=== PATIENT | female | born 1970 | race Caucasian/White ===

== ENCOUNTER 2019-09-04 07:45 | Emergency (ER) | payer BC ==
[2019-09-04 08:08] VITALS: BP 149/101
--- NOTE | 2019-09-04 08:12 | UC ---
Lower Extremity/Ankle HPI - HPI Summary HPI Summary: The patient is a 49-year-old female that presents here with a 2 day history of rapidly progressing left lateral ankle pain redness and swelling. She has hardware in that ankle from an open reduction internal fixation of her fracture that was performed over 20 years ago. She has not been feverish. She denies any history of skin infections. She states that a number weeks ago she had bumped that ankle and had an open area of the later formed a scab over her lateral malleolus. - History of Current Complaint Chief Complaint: UCLowerExtremity Stated Complaint: ANKLE INJURY Time Seen by Provider: 09/04/19 08:03 Hx Obtained From: Patient Onset/Duration: Gradual Onset, Lasting Days Severity Initially: Mild Severity Currently: Moderate Pain Intensity: 5 Pain Scale Used: 0-10 Numeric Aggravating Factor(s): Standing, Ambulation Alleviating Factor(s): Rest Able to Bear Weight: Yes Feet (Multiple View): 1 - surgical scar 2 - eschar 3 - red/warm/tender - Allergies/Home Medications Allergies/Adverse Reactions: Allergies Allergy/AdvReac Type Severity Reaction Status Date / Time No Known Allergies Allergy Verified 09/04/19 08:04 Home Medications: Home Medications NK [No Home Medications Reported] 09/04/19 [History Confirmed 09/04/19] PMH/Surg Hx/FS Hx/Imm Hx Previously Healthy: Yes - Surgical History Surgical History: Yes Surgery Procedure, Year, and Place: Partial thyroidectomy. L ankle surgery. C section x2 - Family History Known Family History: Positive: Non-Contributory - Social History Alcohol Use: None Substance Use Type: None Smoking Status (MU): Never Smoked Tobacco Review of Systems All Other Systems Reviewed And Are Negative: Yes Constitutional: Positive: Negative Skin: Positive: Negative Eyes: Positive: Negative ENT: Positive: Negative Respiratory: Positive: Negative Cardiovascular: Positive: Negative Gastrointestinal: Positive: Negative Genitourinary: Positive: Negative Motor: Positive: Negative Neurovascular: Positive: Negative Musculoskeletal: Positive: Arthralgia - Left ankle Neurological: Positive: Negative Psychological: Positive: Negative Physical Exam Triage Information Reviewed: Yes Appearance: Well-Appearing, No Pain Distress, Well-Nourished Vital Signs: Initial Vital Signs Temp 99.6 F 09/04/19 08:05 Pulse 109 09/04/19 08:05 Resp 18 09/04/19 08:05 BP 149/101 09/04/19 08:05 Pulse Ox 100 09/04/19 08:05 Vital Signs Reviewed: Yes Eyes: Positive: Conjunctiva Clear ENT: Positive: Hearing grossly normal, Uvula midline. Negative: Nasal congestion, Nasal drainage, Tonsillar swelling, Tonsillar exudate, Hoarse voice Neck: Positive: Supple Respiratory: Positive: Lungs clear, Normal breath sounds, No respiratory distress, No accessory muscle use Cardiovascular: Positive: RRR, No Murmur Musculoskeletal: Positive: No Edema, Other: - see image Neurological: Positive: Alert Psychological Exam: Normal Skin Exam: Normal Lower Extremity Course/Dx - Course Course Of Treatment: I explained to patient my concern re infection/osteo ? joint infection She will be driven to ER by her son - Differential Dx/Diagnosis Provider Diagnosis: Left ankle pain Discharge ED - Sign-Out/Discharge Documenting (check all that apply): Patient Departure All imaging exams completed and their final reports reviewed: No Studies - Discharge Plan Condition: Fair Disposition: HOME-RECOMMEND TO ED Referrals: No Primary Care Phys,NOPCP [Primary Care Provider] - Additional Instructions: please go to the ER directly from here You may have infected hardware /joint infection/bone infection This needs to be addressed today - Billing Disposition and Condition Condition: FAIR Disposition: Home-Recommend to ED
== END 2019-09-04 08:16 | disposition home health service (06) ==
LOC: UCEAST 07:45
DX: M25.572 Pain in left ankle and joints of left foot (principal); Z96.7 Presence of other bone and tendon implants
CPT/HCPCS: 99202; G0463

== ENCOUNTER 2019-09-04 08:32 | Emergency (ER) | payer BC ==
--- NOTE | 2019-09-04 09:12 | ED ---
Lower Extremity - HPI Summary HPI Summary: This patient is a 49 year old F presenting to [facility] accompanied by sons with a chief complaint of pain in left ankle since a couple days ago. A couple days ago her ankle suddenly began to hurt and became red and swollen. Per triage, the patient rates the pain 9/10 in severity. Patients left ankle has hardware in it from injury years ago. Around 5 months ago, pt banged her leg, and her ankle opened up. However her ankle had closed back up. Pt was sent to ED from Urgent Care. - History of Current Complaint Chief Complaint: EDExtremityLower Stated Complaint: SORE L ANKLE PER PT Time Seen by Provider: 09/04/19 08:50 Hx Obtained From: Patient Mechanism Of Injury: Unknown Onset of Pain: Days Onset/Duration: Still Present Severity Initially: Severe Severity Currently: Severe Pain Intensity: 9 Pain Scale Used: 0-10 Numeric Timing: Constant Location: Is Discrete @ - L ankle Associated Signs And Symptoms: Positive: Swelling, Redness Aggravating Factor(s): Nothing Alleviating Factor(s): Nothing - Allergies/Home Medications Allergies/Adverse Reactions: Allergies Allergy/AdvReac Type Severity Reaction Status Date / Time No Known Allergies Allergy Verified 09/04/19 08:43 PMH/Surg Hx/FS Hx/Imm Hx Sensory History: Denies: Hx Legally Blind, Hx Deafness Opthamlomology History: Denies: Hx Legally Blind EENT History: Denies: Hx Deafness - Surgical History Surgery Procedure, Year, and Place: Partial thyroidectomy. L ankle surgery. C section x2 Infectious Disease History: No Infectious Disease History: Denies: Traveled Outside the [place] in Last 30 Days - Family History Known Family History: Positive: Hypertension, Diabetes - Social History Lives: With Family Alcohol Use: None Substance Use Type: Reports: None Smoking Status (MU): Never Smoked Tobacco Review of Systems Negative: Fever Positive: Edema, Other - L ankle pain, redness All Other Systems Reviewed And Are Negative: Yes Physical Exam - Summary Physical Exam Summary: Appearance: The patient is well-nourished in no acute distress and in no acute pain. Skin: The skin is warm and dry, and skin color reflects adequate perfusion. HEENT: The head is normocephalic and atraumatic. The pupils are equal and reactive. The conjunctivae are clear and without drainage. Nares are patent and without drainage. Mouth reveals moist mucous membranes, and the throat is without erythema and exudate. The external ears are intact. The ear canals are patent and without drainage. The tympanic membranes are intact. Neck: The neck is supple with full range of motion and non-tender. There are no carotid bruits. There is no neck vein distension. Respiratory: Chest is non-tender. Lungs are clear to auscultation and breath sounds are symmetrical and equal. Cardiovascular: Heart is regular rate and rhythm. There is no murmur or rub auscultated. Pulses are symmetrical and equal. Abdomen: The abdomen is soft and non-tender. There are normal bowel sounds heard in all four quadrants and there is no organomegaly palpated. Musculoskeletal: There is no back tenderness noted. There is good capillary refill. There is no calf tenderness elicited. Lateral L ankle swollen and erythematous. Neurological: Patient is alert and oriented to person, place and time. The patient has symmetrical motor strength in all four extremities. Cranial nerves are grossly intact. Deep tendon reflexes are symmetrical and equal in all four extremities. Psychiatric: The patient has an appropriate affect and does not exhibit any anxiety or depression. Triage Information Reviewed: Yes Vital Signs On Initial Exam: Initial Vitals Temp Pulse Resp BP Pulse Ox 97.4 F 101 17 152/109 100 09/04/19 08:40 09/04/19 08:40 09/04/19 08:40 09/04/19 08:40 09/04/19 08:40 Vital Signs Reviewed: Yes Procedures - Sedation Patient Received Moderate/Deep Sedation with Procedure: No Diagnostics - Vital Signs Vital Signs Temp Pulse Resp BP Pulse Ox 09/04/19 08:40 97.4 F 101 17 152/109 100 - Laboratory Result Diagrams: 09/04/19 09:22 09/04/19 09:22 Lab Statement: Any lab studies that have been ordered have been reviewed, and results considered in the medical decision making process. - Radiology Ankle X-Ray Radiology Interpretation Completed By: Radiologist Summary of Radiographic Findings: Ankle X-Ray reveals, per radiologist IMPRESSION: 1. INTACT LEFT DISTAL ANKLE ORIF DEVICES THAT APPEAR TO BE ANATOMICALLY ALIGNED. 2. RADIOGRAPHIC FINDINGS ARE CONSISTENT WITH SOFT TISSUE SWELLING SURROUNDING THE ANKLE. ED physician has reviewed this radiology report. Re-Evaluation - Re-Evaluation First Eval Re-Evaluation Time: 10:20 Comment: Discussed results and plan of care with pt. Lower Extremity Course/Dx - Course Course Of Treatment: Ms. Montero swelling, erythema and tenderness consistent with cellulitis. There is a break in the skin this may be the origin. Plain film showed no sign of osteo myelitis and she had no leukocytosis. This does not completely clear her of an ostial mellitus and I recommend she follow up with her PCP in [place] she may need further testing. Meanwhile I will start her on Keflex. - Diagnoses Provider Diagnoses: Cellulitis Discharge ED - Sign-Out/Discharge Documenting (check all that apply): Patient Departure - Discharge - Discharge Plan Condition: Stable Disposition: HOME Prescriptions: Cephalexin CAP* [Keflex CAP*] 500 mg PO QID #40 cap Patient Education Materials: Cellulitis (ED) Referrals: Sanjeev Argueta MD [Medical Doctor] - 3 Days Additional Instructions: Follow up with orthopedic doctor within 2-3 days. Return to ED for any new or worsening symptoms. - Billing Disposition and Condition Condition: STABLE Disposition: Home - Attestation Statements Document Initiated by Scribe: Yes Documenting Scribe: Dee Evans Provider For Whom Scribe is Documenting (Include Credential): Nitesh Gillespie MD Scribe Attestation: IDee, pietroibed for Nitesh Gillespie MD on 09/04/19 at 1601. Scribe Documentation Reviewed: Yes Provider Attestation: The documentation as recorded by the Dee loredo accurately reflects the service I personally performed and the decisions made by me, Nitesh Gillespie MD Status of Scribe Document: Viewed
[2019-09-04 09:31] LABS: ABS Eosinophils 0.1 10^3/ul (0-0.6); ABS Lymphocytes 1.2 10^3/ul (1.0-4.8); ABS Monocytes 0.8 10^3/ul (0-0.8); ABS Neutrophils 7.5 10^3/ul (1.5-7.7); Eosinophil % 0.6 %; Hematocrit 40 % (35-47); Hemoglobin 13.2 g/dL (12.0-16.0); Lymphocyte % 12.6 %; Mean Corpuscular HGB Conc 33 g/dL (31-36); Mean Corpuscular Hemoglobin 30 pg (27-31); Mean Corpuscular Volume 89 fL (80-97); Mean Platelet Volume 8.8 fL (7.4-10.4); Platelet Count 240 10^3/uL (150-450); Red Blood Count 4.46 10^6 /uL (3.70-4.87); Red Cell Distribution Width 14 % (10-15); White Blood Count 9.6 10^3/uL (3.5-10.8)
[2019-09-04 10:03] LABS: Albumin 4.4 g/dL (3.2-5.2); Albumin/Globulin Ratio 1.3 (1-3); BUN/Creatinine Ratio 14.1 (8-20); Calcium 9.5 mg/dL (8.6-10.3); EGFR African American 119.8 (>60); Globulin 3.5 g/dL (2-4); Potassium 3.8 mmol/L (3.5-5.0); Total Bilirubin 0.7 mg/dL (0.2-1.0); Total Protein 7.9 g/dL (6.4-8.9)
[2019-09-04] MEDS ORDERED: Cephalexin CAP* 500 MG PO ONE (10:35)
[2019-09-04 10:57] VITALS: BP 148/90
== END 2019-09-04 10:57 | disposition home or self-care (01) ==
LOC: ED 08:32
DX: L03.116 Cellulitis of left lower limb (principal)
CPT/HCPCS: 36415; 80053; 83605; 85025; 87040; 99282; A9270-GY

== ENCOUNTER → 2019-09-26 13:36 | Day surgery (SDC) | payer BC ==
[~2019-09-26 13:36] MED LIST: Buffered Lidocaine 1% SYRIN* 1 ML/SYRINGE INTRADERM ONE; Bupivacaine 0.5%* 50 ML MDV VIAL ONE; Dexamethasone TAB* 4 MG ONE; Dexamethasone TAB* 4 MG PO ONE; DiMENhydriNATE IV* 50 MG/ML VIAL IV PUSH PRN; Famotidine IV* 10 MG/ML 2 ML (20 mg) IV ONE; Famotidine IV* 10 MG/ML 2 ML (20 mg) ONE; HYDROmorphone INJ1* 1 MG/ML SYRINGE IV PRN; KETAMINE HCL* 50 MG/ML 10 ML VIAL ONE; Lactated Ringers 1000 ML Bag* 1,000 ML IV SCH; Lidocaine 2% PF * 5 ML VIAL ONE; Midazolam* 1 MG/ML 5 ML VIAL (5 MG) ONE; Naloxone* 0.4 MG/ML 1 ML VIAL IV PRN; Ondansetron ODT TAB* 4 MG ONE; Ondansetron ODT TAB* 4 MG PO ONE; PROCHLORPERAZINE INJ 5 MG/ML 2 ML VIAL IV PRN; Propofol* 10 MG/ML 20 ML BTL ONE; ceFAZolin 2 GM PREMIX in ORs 2 GM/50 ML BAG ONE; fentaNYL* 50 MCG/ML 2 ML VIAL (100 MCG VIAL) IV PRN; fentaNYL* 50 MCG/ML 2 ML VIAL (100 MCG VIAL) ONE; oxyCODONE TAB* 5 MG TAB PO PRN
--- NOTE | 2019-09-26 17:49 | OP ---
Operative Report - Blank - Operative Report Date of Operation: 09/26/19 Note: PATIENT: Lurdes Montero DATE OF : 1970 DATE OF SURGERY: 09/26/2019 SURGEON: Dougie Panda MD EXTERNAL GRINDER TOOL: none ANESTHESIOLOGIST: Dr. Loco PREOPERATIVE DIAGNOSIS: Left ankle painful retained hardware causing skin breakdown and cellulitis POSTOPERATIVE DIAGNOSIS: Left ankle painful retained hardware causing skin breakdown and cellulitis OPERATION: Left ankle, removal of implants, deep. ANESTHESIA: MAC IMPLANTS: none TOURNIQUET TIME: Less than 30 minutes with an ankle esmarch tourniquet SPECIMENS: none ESTIMATED BLOOD LOSS: minimal COMPLICATIONS: none STATUS: Stable from the operating room to the recovery room and then home. INDICATIONS FOR PROCEDURE: Lurdes had a previous ankle fracture ORIF and recently has been having skin breakdown over the distal fibula hardware and had developed a cellulitis. Both operative and non operative treatment alternatives were reviewed. Further, the nature and risks of surgery were reviewed in careful detail, in the office as well as the pre-operative holding area. Our discussions regarding the risks of surgery included, but were not limited to, infection, wound problems, nerve injury, neuroma, RSD, persistent symptoms, blood clot, fracture, need for further surgery, post-traumatic arthritis, failure of the surgery, and even the remote chance of catastrophic complication. DESCRIPTION OF PROCEDURE: The patient was seen in the preoperative holding unit and informed written consent was obtained. The appropriate extremity was marked. The patient was then brought to the operating room and carefully positioned on the operating room table. Anesthesia was induced. All bony prominences were padded with great care. A chlorhexidine based pre-scrub was performed followed by a chloraprep prep and drape in standard sterile fashion. A surgical safety pause was then conducted in which we confirmed the appropriate patient, extremity, planned procedure, availability of equipment, indication and administration of prophylactic antibiotics, and DVT prophylaxis in the form of a compression boot on the non-surgical extremity. We began by performing an Esmarch exsanguination of the limb and placement of an ankle Esmarch tourniquet. I injected local anesthetic to the area of the prior surgical incision. I utilized the prior lateral ankle incision. I utilized blunt dissection down to the level of the hardware. I then utilized a scalpel to sharply expose the screw heads. I then removed the screws utilizing a screwdriver without difficulty. The screws came out in their entirety. I then removed the plate. No obvious infection or purulence was encountered. The screw holes were gently curetted. The wound was then copiously irrigated with sterile saline. The wound was then closed in layers with 3-0 Monocryl and 3-0 nylon. A sterile dressing was then applied. The patient was then awakened from anesthesia and transferred to the recovery room in stable condition. There were no complications. All needle and sponge counts were correct at the end of the case. ATTESTATION: I attest I was present and scrubbed and performed the critical portions of the procedure myself. POSTOPERATIVE PLAN: The plan is to remove the sutures in 2 weeks.
[2019-09-26 18:46] VITALS: BP 140/103
== END | disposition home or self-care (01) ==
LOC: OR 13:36
PROVIDERS: ATTEND Orthopaedic Surgery
DX: T84.84XA Pain due to internal orthopedic prosthetic devices, implants and grafts, initial encounter (principal); L03.116 Cellulitis of left lower limb
CPT/HCPCS: 81025; 88300; A9270-GY; J0690; J2250; J2704; J3010; J3490; J8540